=== PATIENT | male | born 1945 | race Caucasian/White ===

== ENCOUNTER 2020-03-06 05:33 | Outpatient (RCR) | payer MEDICARE ==
[~2020-03-06] VITALS: Ht 188 cm; Wt 114.2 kg
[2020-03-06 09:20] VITALS: BP 143/86
[2020-03-06 09:54] LABS: BASOPHILS % (AUTO) 0 % (0-10); EOSINOPHILS # (AUTO) 0.3 10^3/uL (0.0-0.3); EOSINOPHILS % (AUTO) 3 % (0-10); HEMATOCRIT 46 % (40-54); HEMOGLOBIN 15.5 g/dL (13.3-17.7); LYMPHOCYTES # (AUTO) 0.9 10^3/uL (1.0-4.0); LYMPHOCYTES % (AUTO) 9 % (12-44); MEAN CORPUSCULAR HEMOGLOBIN 30 pg (25-34); MEAN CORPUSCULAR HGB CONC 34 g/dL (32-36); MEAN CORPUSCULAR VOLUME 90 fL (80-99); MEAN PLATELET VOLUME 9.5 fL (9.0-12.2); MONOCYTES # (AUTO) 0.7 10^3/uL (0.0-1.0); MONOCYTES % (AUTO) 7 % (0-12); NEUTROPHILS # (AUTO) 7.6 10^3/uL (1.8-7.8); NEUTROPHILS % (AUTO) 80 % (42-75); PLATELET COUNT 240 10^3/uL (130-400); WHITE BLOOD COUNT 9.6 10^3/uL (4.3-11.0)
[2020-03-06] MEDS ORDERED: ACET-2267 PO (10:24)
[2020-03-06] MEDS ORDERED: AMLO-251 PO (10:24)
[2020-03-06] MEDS ORDERED: FINA5TAB6 PO (10:24)
[2020-03-06] MEDS ORDERED: TRAM50TA3 PO (10:24)
[2020-03-06] MEDS ORDERED: CARV6.252 PO (10:24)
== END 2020-03-06 10:37 | disposition home or self-care (01) ==
LOC: PREOP 05:33
PROVIDERS: ATTEND Urology
DX: Z01.818 Encounter for other preprocedural examination (principal); N40.0 Benign prostatic hyperplasia without lower urinary tract symptoms; N21.0 Calculus in bladder
CPT/HCPCS: 85025; 86850; 86900; 86901; 87081; U0002; 36415; 87635

== ENCOUNTER 2020-03-10 06:15 | Inpatient (IN) | payer MEDICARE ==
[2020-03-10] VITALS (14 sets, daily range): BP systolic 94–152; BP diastolic 65–92
[~2020-03-10] VITALS: Ht 188 cm; Wt 114.2 kg
[~2020-03-10 06:15] MED LIST: ACET-2267 PO; AMLO-251 PO; CARV6.252 PO; FINA5TAB6 PO; TRAM50TA3 PO
[2020-03-10] MEDS ORDERED: LACTATED RINGERS 1,000 ML IV PRN (06:52)
[2020-03-10] MEDS ORDERED: proPOfol 200 MG/20 ML (DIPRIVAN) VIAL IV ONE (06:57)
[2020-03-10] MEDS ORDERED: ONDANSETRON 4 MG/2 ML (SDV) Z0FRAN ONE (06:57)
[2020-03-10] MEDS ORDERED: ROCURONIUM 10 MG/ML 5 ML SYRINGE IV ONE ×2 (06:57→09:20)
[2020-03-10] MEDS ORDERED: LIDOCAINE PF 2% 5 ML (XYLOCAINE) VIAL ONE (06:57)
[2020-03-10] MEDS ORDERED: fentaNYL INJECTION 100 MCG/2 ML AMP ONE ×2 (06:58→08:01)
[2020-03-10] MEDS ORDERED: MIDAZOLAM 2 MG/2 ML (VERSED) VIAL ONE (06:58)
--- NOTE | 2020-03-10 06:58 | Progress Note-Pre Operative ---
Pre-Operative Progress Note H&P Reviewed The H&P was reviewed, patient examined and no changes noted. Date Seen by Provider: Mar 10, 2020 Time Seen by Provider: 06:58 Date H&P Reviewed: Mar 10, 2020 Time H&P Reviewed: 06:58 Pre-Operative Diagnosis: BPH AND URINE RETENTION THALIA VANG MD Mar 10, 2020 06:58
[2020-03-10] MEDS ORDERED: BELLADONNA ALK/OPIUM (B & O) 30 MG SUPP PR PRN (07:00)
[2020-03-10] MEDS ORDERED: cefTRIAXone FOR IV USE 1,000 MG in WATER (STERILE) FOR INJECTION 10 ML IV ONE (07:00)
--- NOTE | 2020-03-10 07:00 | Progress Note-Post Operative ---
Post-Operative Progess Note Surgeon (s)/Retail Support Associate (s) Surgeon THALIA VANG MD Retail Support Associate: CINDY INGRAM D.O Pre-Operative Diagnosis BPH, BLADDER STONE AND URINE RETENTION Post-Operative Diagnosis SAME Procedure & Operative Findings Date of Procedure 03/10/20 Procedure Performed/Findings SPP AND REMOVAL OF BLADDER STONE Anesthesia Type GENERAL Estimated Blood Loss Estimated blood loss (mL): 350cc Specimens/Packing Specimens Removed PROSTATE ADENOMA AND BLADDER STONE Packing: HEMOVAC TO SELF SUCTION THALIA VANG MD Mar 10, 2020 07:00
[2020-03-10] MEDS ORDERED: GENTAMICIN 40 MG/ML 2 ML INJ SDV ONE (07:05)
[2020-03-10] MEDS ORDERED: SEVOFLURANE (ULTANE) 15 ML INHAL SOLN ONE ×4 (07:12→09:20)
[2020-03-10] MEDS ORDERED: fentaNYL INJECTION 5,000 MCG in EMPTY IV BAG (PVC) 1 EA IV SCH ×4 (07:15)
[2020-03-10] MEDS ORDERED: FLU QUAD HIGH DOSE 240 MCG/0.7 ML 2020-21 (FLUZONE) IM ONE (07:30)
[2020-03-10] MEDS ORDERED: NEOSTIGMINE 3 MG/3 ML VIAL ONE (08:55)
[2020-03-10] MEDS ORDERED: GLYCOPYRROLATE 0.2 MG/ML (ROBINUL) 2 ML VIAL ONE (08:55)
[2020-03-10] MEDS ORDERED: morphine INJ 10 MG/ML 1ML (SYR OR VIAL) IVP ONE (09:45)
[2020-03-10] MEDS ORDERED: PROMETHAZINE INJ 25 MG/ML (PHENERGAN) AMP IVP ONE (09:45)
[2020-03-10] MEDS ORDERED: ONDANSETRON 4 MG/2 ML (SDV) Z0FRAN IVP PRN (09:45)
[2020-03-10] MEDS ORDERED: MEPERIDINE (DEMEROL) INJ 50 MG/ML IVP ONE (09:45)
[2020-03-10 10:17] LABS: HEMOGLOBIN 13.4 g/dL (13.3-17.7); MEAN PLATELET VOLUME 9.6 fL (9.0-12.2); WHITE BLOOD COUNT 14.4 10^3/uL (4.3-11.0)
[2020-03-10 10:21] LABS: CALCIUM 8.3 MG/DL (8.5-10.1); CREATININE SERUM 1.2 MG/DL (0.60-1.30); POTASSIUM 4.6 MMOL/L (3.6-5.0)
--- NOTE | 2020-03-10 11:00 | NUR ---
EMERY AMOR admitted to room 410-1, from the surgery center prostectomy and removal of bladder stone , on 03/10/20, accompanied by OR nurse .EMERY AMOR introduced to surroundings, call light, bed controls, phone, TV, temperature control, lights, meal times, smoking policy, visitor policy, side rail policy, bathrooms and showers. Patient Rights given to patient in the handbook. EMERY AMOR verbalizes understanding that [facility] is not responsible for the loss or damage to any personal effects or valuables that are kept in the patients posession during their hospitalization. The following Patient Care Plans and discharge were discussed with the patient. EMERY AMOR verbalizes understanding of Interdisciplinary Patient Education. Patient was informed about the Rapid Response Team and its purpose.
[2020-03-10] MEDS: LACTATED RINGERS 1,000 ML IV SCH ×3 (11:01→15:13)
[2020-03-10] MEDS: cefTRIAXone FOR IV USE 1,000 MG in WATER (STERILE) FOR INJECTION 10 ML IV SCH (11:02)
[2020-03-10] MEDS: DOCUSATE SODIUM 100 MG (COLACE) CAP PO SCH ×2 (11:02→21:02)
[2020-03-10] MEDS ORDERED: BELLADONNA ALK/OPIUM (B & O) 30 MG SUPP ONE (11:32)
[2020-03-10] MEDS ORDERED: diphenhydrAMINE 50 MG/ML INJ (BENADRYL) IV PRN (12:45)
[2020-03-10] MEDS ORDERED: METOCLOPRAMIDE INJ 10 MG/2 ML (REGLAN) IV PRN (12:45)
[2020-03-10] MEDS ORDERED: ONDANSETRON 4 MG/2 ML (SDV) Z0FRAN IV PRN (12:45)
[2020-03-10] MEDS ORDERED: fentaNYL INJECTION 1,000 MCG in NS (IVPB) 80 ML IV SCH (12:45)
[2020-03-10] MEDS ORDERED: NALOXONE 0.4 MG/ML 1 ML (NARCAN) VIAL IV PRN (12:45)
--- NOTE | 2020-03-10 13:17 | OPERATIVE REPORT ---
DATE OF SERVICE: 03/10/2020 PREOPERATIVE DIAGNOSES: Benign prostatic hypertrophy with urinary retention and bladder stone. POSTOPERATIVE DIAGNOSES: Benign prostatic hypertrophy with urinary retention and bladder stone. OPERATIONS PERFORMED: Suprapubic prostatectomy and removal of bladder stones. SURGEON: Agustin Vang MD. ANESTHESIA: General. COMPLICATIONS: None. DESCRIPTION OF PROCEDURE: Under satisfactory general anesthesia, the patient in supine position, the genitalia, abdomen and thigh were prepped and draped in the usual sterile fashion after removing the present catheter. A Presley catheter was inserted sterilely and accessible sterilely and the balloon was inflated to 10 mL. The bladder was filled with about 400 mL of antibiotic solution and the catheter was clamped. A midline incision was made from symphysis pubis to below the umbilicus, carried through the skin, subcutaneous tissue and fascia. The fascia was incised and the midline was identified. The recti were retracted laterally. The retropubic space was dissected bluntly. A self-retaining retractor was applied. Two stay sutures of silk were placed on either side of the midline of the bladder. The bladder was opened longitudinally and the fluid was suctioned. The ureteral orifices and trigone were identified and preserved at all time. A circular incision was made around the adenoma and deepened with the finger and enucleated the whole adenoma after retracting the catheter and removed it completely. The prostatic fossa was packed with a vaginal pack and pressure was applied for a few minutes for hemostasis. The ureteral orifices were identified spurting clear urine. A stone was in the bladder. It was removed prior to the enucleation. The vaginal pack was then removed and a 3-way 30 mL balloon catheter was inserted. The balloon inflated to 50 mL. The 20-Nauruan 2-way 5 mL balloon catheter was inserted and the suprapubic tube brought on this side anteriorly and the balloon inflated to 10 mL. Closure was performed in a 2-layer, first the mucosa with a running 3-0 chromic catgut and then the seromuscular layer with interrupted 2-0 chromic. The suprapubic tube was connected to CBI coming out through the urethral catheter, the return of which was pretty clear and CBI was run fpc. The retropubic space was drained and Hemovac was brought through a separate stab wound on the right side of the incision and secured in position with 2-0 silk suture. Closure was performed in layers, first the recti were approximated with interrupted 3-0 chromic, the fascia with interrupted 0 Vicryl, the subcutaneous tissue with interrupted 3-0 plain and the skin with marianna. The suprapubic tube was secured in position with 0 silk suture. The needle, sponge and instrument counts were correct x2. Estimated blood loss was 350 mL, none of which was replaced. The patient tolerated the procedure and anesthesia well and was sent to recovery room in stable condition after application of a dressing. Job ID: [id number] DocumentID: [id number] Dictated Date: 03/10/2020 09:31:15 Poultry Helper Date: 03/10/2020 13:16:09 Dictated By: AGUSTIN VANG MD
[2020-03-10] MEDS: NS IV 1000 ML 1,000 ML IV SCH (13:34)
[2020-03-10] MEDS: LIDOCAINE UROJET 2% GEL 10 ML PKG TOP PRN ×2 (13:36→21:12)
--- NOTE | 2020-03-10 14:11 | Anesthesia-General Post-Op ---
General Patient Condition Mental Status/LOC: Same as Preop Cardiovascular: Satisfactory Nausea/Vomiting: Absent Respiratory: Satisfactory Pain: Controlled Complications: Absent Post Op Complications Complications None Follow Up Care/Instructions Patient Instructions None needed. Anesthesia/Patient Condition Patient Condition Patient is doing well, no complaints, stable vital signs, no apparent adverse anesthesia problems. No complications reported per nursing. SUSANA SHELL CRNA Mar 10, 2020 14:11
[2020-03-11 04:35] VITALS: BP 128/73
[2020-03-11] MEDS: cefTRIAXone FOR IV USE 1,000 MG in WATER (STERILE) FOR INJECTION 10 ML IV SCH (06:17)
[2020-03-11 08:00] VITALS: BP 143/81
[2020-03-11] MEDS: SENNA W/DOCUSATE (SENOKOT S) TABLET PO SCH (08:24)
[2020-03-11] MEDS: DOCUSATE SODIUM 100 MG (COLACE) CAP PO SCH ×2 (08:24→20:06)
--- NOTE | 2020-03-11 10:12 | Progress Note - Urology ---
Progress Note-Urology Progress Notes/Assess & Plan Progress/Assessment & Plan DOING, FEELING, AND LOOKING WELL. TOLERATES DIET WELL. PASSING FLATUS, NO BM YET. CHEST CTA, NORMAL BOWEL SOUNDS, HEART RRR. GOOD [place] OUTPUT. URINE TINGED AND CLEAR, NO CLOTS. NO COMPLAINTS. HEMOVAC 30CC. Final Diagnosis BPH AND URINE RETENTION POST SPP THALIA VANG MD Mar 11, 2020 10:12
[2020-03-11] MEDS ORDERED: MILK OF MAGNESIA 400 MG/5 ML 30 ML UDC PO NR (10:15)
[2020-03-11 12:00] VITALS: BP 136/81
[2020-03-11] MEDS: LIDOCAINE UROJET 2% GEL 10 ML PKG TOP PRN (14:28)
[2020-03-11 16:09] VITALS: BP 157/77
[2020-03-11] MEDS: NS IV 1000 ML 1,000 ML IV SCH (18:14)
[2020-03-11 19:47] VITALS: BP 139/75
--- NOTE | 2020-03-11 21:30 | NUR ---
PATIENT HAD SMALL AMOUNT OF BLOOD DRAINING AROUND CATHETER. HAND IRRIGATION DONE AT THIS TIME. A SMALL CLOT WAS REMOVED. PATIENTS URINE CLEAR/TINGED. CBI IN PLACE. WILL CONTINUE TO MONITOR.
[2020-03-11 23:19] VITALS: BP 122/88
[2020-03-12 04:11] VITALS: BP 125/79
[2020-03-12 05:12] LABS: BASOPHILS % (AUTO) 0 % (0-10); EOSINOPHILS % (AUTO) 0 % (0-10); HEMATOCRIT 37 % (40-54); HEMOGLOBIN 12.6 g/dL (13.3-17.7); LYMPHOCYTES % (AUTO) 8 % (12-44); MEAN CORPUSCULAR HEMOGLOBIN 31 pg (25-34); MEAN CORPUSCULAR HGB CONC 34 g/dL (32-36); MEAN CORPUSCULAR VOLUME 90 fL (80-99); MONOCYTES # (AUTO) 1.2 10^3/uL (0.0-1.0); MONOCYTES % (AUTO) 10 % (0-12); NEUTROPHILS # (AUTO) 10.1 10^3/uL (1.8-7.8); NEUTROPHILS % (AUTO) 81 % (42-75); PLATELET COUNT 174 10^3/uL (130-400); WHITE BLOOD COUNT 12.4 10^3/uL (4.3-11.0)
[2020-03-12 05:27] LABS: POTASSIUM 4.1 MMOL/L (3.6-5.0)
[2020-03-12 05:28] LABS: CALCIUM 8.4 MG/DL (8.5-10.1)
[2020-03-12 05:32] LABS: CREATININE SERUM 1.22 MG/DL (0.60-1.30)
[2020-03-12] MEDS: cefTRIAXone FOR IV USE 1,000 MG in WATER (STERILE) FOR INJECTION 10 ML IV SCH (06:18)
--- NOTE | 2020-03-12 06:43 | NUR ---
PATIENT HAD SMALL AMOUNT OF BLOOD DRAINING AROUND CATHETER. HAND IRRIGATION DONE AT THIS TIME. A SMALL CLOT WAS REMOVED. PATIENTS URINE CLEAR/TINGED. CBI IN PLACE. WILL CONTINUE TO MONITOR. PATIENT HAS NO COMPLAINTS AT THIS TIME.
[2020-03-12 08:00] VITALS: BP 150/91
--- NOTE | 2020-03-12 08:09 | NUR ---
PATIENT CBI FLOWING WITH NO OBSTRUCTION. PATIENT IS IN BED, DENIES ANY C/O OR SYMPTOMS. DR VANG NOTIFIED OF MARGO'S NEWLY NOTED AFIB BY THIS RN. NEW ORDERS. PATIENT IS ASYMPTOMATIC
--- NOTE | 2020-03-12 08:44 | NUR ---
DR MORENO NOTIFIED OF CONSULTATION AND EKG RESULTS-AFIB AND POSTERIOR INFARCT. LEFT VOICE MESSAGE AND TEXT MESSAGE.
--- NOTE | 2020-03-12 08:59 | NUR ---
DR MORENO AND DR ENGLAND NOTIFIED OF ASSESSMENT, FINDINGS EKG. NEW ORDERS. PATIENT REMAINS ASYMPTOMATIC.
--- NOTE | 2020-03-12 09:01 | NUR ---
PER DR VANG, HE WILL SPEAK DIRECTLY WITH DR MORENO REGARDING DIONNE'S ORAL ANTICOAGULATION. PATIENT DENIES NEEDS OR C/O. PATIENT EDUCATED ON ALL ORDERS, CALM, REASSURING APPROACH PROVIDED. SPOKE WITH PATIENT AND PATENT'S SISTER, SADIQ EFRAIN AGUILAR. NO QUESTIONS AT THIS TIME.
[2020-03-12] MEDS ORDERED: MILK OF MAGNESIA 400 MG/5 ML 30 ML UDC ONE ×2 (09:12→14:30)
[2020-03-12] MEDS: SENNA W/DOCUSATE (SENOKOT S) TABLET PO SCH (09:15)
[2020-03-12] MEDS: DOCUSATE SODIUM 100 MG (COLACE) CAP PO SCH ×2 (09:15→19:48)
[2020-03-12] MEDS: LACTATED RINGERS 1,000 ML IV SCH (09:31)
--- NOTE | 2020-03-12 09:59 | Progress Note - Urology ---
Progress Note-Urology Progress Notes/Assess & Plan Progress/Assessment & Plan ON AND OFF A.FIB, ASYMPTOMATIC, CONSULT DR MORENO, PLAN OBSERVE FOR NOW. URINE CLEAR AND DIPIKA. PLAN HOLD CBI, PUSH FLUIDS, SALINE LOCK FOR IV ABX Final Diagnosis BPH THALIA VANG MD Mar 12, 2020 09:59
--- NOTE | 2020-03-12 10:25 | NUR ---
ICU NOTIFIED THIS RN OF PVC'S AND VARIABLE HR INTO 150'S. DR MORENO NOTIFIED. DR VANG AND DR MORENO HERE EARLIER TO ASSESS PATIENT. PATINET ASYMPTOMATIC WITH HR. CONT TO MONITOR.
[2020-03-12 12:00] VITALS: BP 148/82
[2020-03-12] MEDS ORDERED: meTOprolol TARTRATE 25 MG (LOPRESSOR) TABLET ONE (12:01)
[2020-03-12 12:07] VITALS: BP 149/78
[2020-03-12] MEDS: LIDOCAINE UROJET 2% GEL 10 ML PKG TOP PRN (13:27)
[2020-03-12] MEDS ORDERED: MILK OF MAGNESIA 400 MG/5 ML 30 ML UDC PO PRN (14:30)
--- NOTE | 2020-03-12 14:36 | NUR ---
PATIENT C/O CONSTIPATION. MOM NOT EFFECTIVE. DR VANG NOTIFIED WITH NEW ORDERS.
--- NOTE | 2020-03-12 15:11 | Consultation - Hospitalist ---
HPI History of Present Illness: HPI/Chief Complaint Pt is a 74yoCM with a PMH of BPH who was admitted for SPP. This morning he developed a-fib and was asymptomatic and this has since resolved. I was consulted for medical management. The patient states he is normally quite healthy and really only his prostate issues and high blood pressure. He has no history of a-fib but he states he has nieces who has an arrhythmia. His only complaint for me is constipation. I offered more treatment but he would like to see if his milk of mag will work first. Source: patient Exam Limitations: no limitations Date Seen 03/12/20 Attending Physician Agustin Hensley MD PCP No,Local Physician Referring Physician Date of Admission Mar 10, 2020 at 06:15 Home Medications & Allergies Home Medications Reviewed patient Home Medication Reconciliation performed by pharmacy medication reconciliations biomedical technician and/or nursing. Patients Allergies have been reviewed. Allergies Allergies Coded Allergies No Known Drug Allergies (Ylooeducwi25/30/20) Past Lxydfnv-Uzbinp-Bvmblf Hx Past Med/Social Hx: Reviewed Nursing Past Med/Soc Hx Patient Social History Alcohol Use: Denies Use Recreational Drug Use: No Physical Abuse Screen: No Sexual Abuse: No Recent Foreign Travel: No Contact w/other who traveled: No Recent Hopitalizations: Yes (related to bladder retention) Recent Infectious Disease Expo: No Immunizations Up To Date Date of Influenza Vaccine: Feb 05, 2019 Seasonal Allergies Seasonal Allergies: Yes Past Medical History Currently Using CPAP: No Currently Using BIPAP: No Cardiac: Hypertension Genitourinary: Benign Prostatic Hyperpl Gastrointestinal: Hemorrhoids Musculoskeletal: Arthritis History of Blood Disorders: No Family History Reviewed Nursing Family Hx Review of Systems Constitutional: No chills, No fever EENTM: no symptoms reported Respiratory: No cough, No dyspnea on exertion, No short of breath Cardiovascular: No chest pain, No edema, No Hx of Intervention, No palpitations Gastrointestinal: no symptoms reported Genitourinary: see HPI Musculoskeletal: no symptoms reported Skin: no symptoms reported Psychiatric/Neurological: No Symptoms Reported Physical Exam Physical Exam Vital Signs Vital Signs - First Documented 03/10/20 07:10 Temp 35.8 Pulse 70 Resp 18 B/P (MAP) 152/87 (108) Pulse Ox 98 O2 Delivery Room Air Capillary Refill : Less Than 3 Seconds Height, Weight, BMI Height: '" Weight: lbs. oz. kg; 32.31 BMI Method: General Appearance: No Apparent Distress, WD/WN HEENT: PERRL/EOMI, Moist Mucous Membranes; No Scleral Icterus (L), No Scleral Icterus (R) Neck: Normal Inspection, Supple; No Thyromegaly Respiratory: Lungs Clear, No Accessory Muscle Use, No Respiratory Distress Cardiovascular: No Murmur, Irregularly Irregular Gastrointestinal: Normal Bowel Sounds, Non Tender, Soft Genital/Rectal: Other (catheter in place) Extremity: No Calf Tenderness, No Pedal Edema Neurologic/Psychiatric: Alert, Oriented x3, Normal Mood/Affect Skin: Normal Color, Warm/Dry Results Results/Procedures Labs Laboratory Tests 03/12/20 04:35 Patient resulted labs reviewed. Assessment/Plan Assessment and Plan Assess & Plan/Chief Complaint Prostate adenoma and BPH s/p SPP Catheter in place Hematuria clearing Pain controlled Bowel regimen Urology primary A-fib New onset Currently in sinus rhythm Cardiology consulted, appreciate recs Echo pending Anticoagulation contraindicated at this time due to surgery HTN Relatiely well controlled Metoprolol Diagnosis/Problems Diagnosis/Problems (1) Atrial fibrillation Qualifiers: Atrial fibrillation type: paroxysmal Qualified Codes: I48.0 - Paroxysmal atrial fibrillation (2) BPH (benign prostatic hyperplasia) Qualifiers: Lower urinary tract symptom presence: symptoms present Lower urinary tract symptom detail: unspecified Qualified Codes: N40.1 - Benign prostatic hyperplasia with lower urinary tract symptoms (3) Urine retention Status: Chronic (4) Bladder stone Status: Chronic (5) Essential (primary) hypertension ANUSHKA ENGLAND MD Mar 12, 2020 15:11
[2020-03-12] MEDS ORDERED: SENNA W/DOCUSATE (SENOKOT S) TABLET PO PRN (15:15)
[2020-03-12 16:33] VITALS: BP 124/69
--- NOTE | 2020-03-12 18:27 | Consultation-Cardiology ---
HPI-Cardiology Cardiology Consultation: Date of Consultation 03/12/20 Date of Admission Attending Physician Agustin Hensley MD Admitting Physician No,Local Physician Consulting Physician Carmel CNUHA MD HPI: Time Seen by a Provider: 10:00 NYV-Wnqxud-Hajlzk Hx Patient Social History Alcohol Use: Denies Use Recreational Drug Use: No Recent Foreign Travel: No Recent Infectious Disease Expo: No Physical Abuse Screen: No Sexual Abuse: No Immunizations Up To Date Date of Influenza Vaccine: Feb 05, 2019 Past Medical History PMH As described under Assessment. Allergies and Home Medications Allergies Coded Allergies: No Known Drug Allergies (Unverified , 03/06/20) Home Medications Acetaminophen 500 Mg Tablet, 1,000 MG PO BID, (Reported) take 2 (500mg) tabs Amlodipine Besylate 10 Mg Tablet, 10 MG PO DAILY, (Reported) Carvedilol 6.25 Mg Tablet, 6.25 MG PO BID, (Reported) Finasteride 5 Mg Tablet, 5 MG PO HS, (Reported) Tramadol HCl 50 Mg Tablet, 50 MG PO BID, (Reported) Physical Exam-Cardiology Physical Exam Vital Signs/I&O 03/12/20 03/12/20 03/12/20 03/12/20 08:00 08:00 09:10 12:00 Temp 35.9 36.2 Pulse 109 103 91 Resp 20 20 B/P (MAP) 150/91 (110) 148/82 (104) Pulse Ox 97 94 O2 Delivery Room Air Room Air Room Air 03/12/20 03/12/20 03/12/20 12:07 12:35 16:33 Temp 36.6 Pulse 110 133 79 Resp 18 B/P (MAP) 149/78 (101) 124/69 (87) Pulse Ox 95 03/12/20 00:00 Intake Total 2095 ml Output Total 2890 ml Balance -795 ml Capillary Refill : Less Than 3 Seconds Data Review Labs Laboratory Tests 03/12/20 04:35: White Blood Count 12.4H, Red Blood Count 4.13L, Hemoglobin 12.6L, Hematocrit 37L , Mean Corpuscular Volume 90, Mean Corpuscular Hemoglobin 31, Mean Corpuscular Hemoglobin Concent 34, Red Cell Distribution Width 13.2, Platelet Count 174, Mean Platelet Volume 10.0, Immature Granulocyte % (Auto) 1, Neutrophils (%) (Auto) 81H, Lymphocytes (%) (Auto) 8L, Monocytes (%) (Auto) 10, Eosinophils (%) (Auto) 0, Basophils (%) (Auto) 0, Neutrophils # (Auto) 10.1H, Lymphocytes # (Auto) 1.0, Monocytes # (Auto) 1.2H, Eosinophils # (Auto) 0.0, Basophils # (Auto) 0.0, Immature Granulocyte # (Auto) 0.1, Sodium Level 140, Potassium Level 4.1, Chloride Level 107, Carbon Dioxide Level 23, Anion Gap 10, Blood Urea Nitrogen 18, Creatinine 1.22, Estimat Glomerular Filtration Rate 58, BUN/Creatinine Ratio 15, Glucose Level 136H, Calcium Level 8.4L 03/12/20 09:25: Troponin I < 0.028 03/12/20 11:55: Troponin I < 0.028 Microbiology 03/10/20 MRSA Screen - Final, Complete MRSA not isolated A/P-Cardiology Plan Thank you for your consultation. Please call me if you have any questions. Bam Cunha MD, FACP, FACC, FSCAI, FHRS, CCDS Interventional Cardiology Cardiac Electrophysiology Vascular Medicine and Endovascular Interventions Carmel CUNHA MD Mar 12, 2020 18:27
[2020-03-12] MEDS: meTOprolol TARTRATE 25 MG (LOPRESSOR) TABLET PO SCH (19:48)
[2020-03-12 20:57] VITALS: BP 153/78
[2020-03-13] VITALS (7 sets, daily range): BP systolic 109–134; BP diastolic 68–84
[2020-03-13] MEDS: NS IV 1000 ML 1,000 ML IV SCH (03:27)
[2020-03-13] MEDS: cefTRIAXone FOR IV USE 1,000 MG in WATER (STERILE) FOR INJECTION 10 ML IV SCH (06:15)
[2020-03-13] MEDS: meTOprolol TARTRATE 25 MG (LOPRESSOR) TABLET PO SCH ×2 (08:57→21:03)
[2020-03-13] MEDS: DOCUSATE SODIUM 100 MG (COLACE) CAP PO SCH ×2 (08:57→21:04)
[2020-03-13] MEDS: SENNA W/DOCUSATE (SENOKOT S) TABLET PO SCH (08:58)
--- NOTE | 2020-03-13 09:45 | NUR ---
Verbal orders from Dr Hensley to add Pyridium 200 TID and remove suprapubic barreto
--- NOTE | 2020-03-13 09:47 | Progress Note - Urology ---
Progress Note-Urology Progress Notes/Assess & Plan Progress/Assessment & Plan CONTINUES WELL. URINE CLEAR AND DIPIKA. PLAN DC SP TUBE.HAD TWO GOOD BM. Final Diagnosis BPH AND URINE RETENTION THALIA VANG MD Mar 13, 2020 09:47
--- NOTE | 2020-03-13 10:08 | NUR ---
pyridum 200 TID DCD due to new order from Ayden
[2020-03-13] MEDS ORDERED: PHENAZOPYRIDINE 100 MG (PYRIDIUM) TABLET PO SCH (13:00)
[2020-03-13] MEDS: PHENAZOPYRIDINE 100 MG (PYRIDIUM) TABLET PO SCH ×2 (13:44→18:29)
[2020-03-13] MEDS: LIDOCAINE UROJET 2% GEL 10 ML PKG TOP PRN (17:28)
[2020-03-14 03:17] VITALS: BP 129/87
[2020-03-14] MEDS: cefTRIAXone FOR IV USE 1,000 MG in WATER (STERILE) FOR INJECTION 10 ML IV SCH (05:59)
[2020-03-14 08:00] VITALS: BP 188/77
[2020-03-14] MEDS: DOCUSATE SODIUM 100 MG (COLACE) CAP PO SCH (08:40)
[2020-03-14] MEDS: meTOprolol TARTRATE 25 MG (LOPRESSOR) TABLET PO SCH (08:40)
[2020-03-14] MEDS: SENNA W/DOCUSATE (SENOKOT S) TABLET PO SCH (08:40)
[2020-03-14] MEDS: PHENAZOPYRIDINE 100 MG (PYRIDIUM) TABLET PO SCH (08:40)
--- NOTE | 2020-03-14 09:44 | Discharge Inst-Urology ---
Discharge Inst-Urology Reconcile Patient Problems Problems Reviewed?: Yes Final Diagnosis BPH AND URINE RETENTION Patient Instructions/Follow Up Plan/Assessment/Instructions Discharge with barreto and leg bag day time and large bag night time with instructions Patient to come to office Monday at 1pm to DC Barreto and marianna and see me Showers, no bath Keep bowels soft and moving REST at home Diet as tolerated. If questions or concerns contact your physician or seek help at emergency department. THALIA VANG MD Mar 14, 2020 09:44
[2020-03-14 13:00] VITALS: BP 188/77
--- NOTE | 2020-03-14 13:07 | NUR ---
Fentanyl 70CC wasted at this time with Tayla RN as witness
--- NOTE | 2020-03-14 17:14 | Cardiology Progress Note ---
Cardiology SOAP Progress Note Objective: I&O/Vital Signs 03/14/20 03/14/20 03/14/20 03/14/20 07:00 07:00 08:00 09:00 Temp 35.4 Pulse 88 89 Resp 20 20 B/P (MAP) 188/77 (114) Pulse Ox 95 O2 Delivery Room Air Room Air 03/14/20 13:00 Temp 35.4 Pulse 89 Resp 20 B/P (MAP) 188/77 Pulse Ox 95 O2 Delivery Room Air 03/14/20 00:00 Intake Total 1620 ml Output Total 1245 ml Balance 375 ml Results/Procedures: Labs Microbiology 03/10/20 MRSA Screen - Final, Complete MRSA not isolated A/P: Thank you for your consultation. Please call me if you have any questions. Bam Cunha MD, FACP, FACC, FSCAI, FHRS, CCDS Interventional Cardiology Cardiac Electrophysiology Vascular Medicine and Endovascular Interventions Carmel CUNHA MD Mar 14, 2020 17:14
--- NOTE | 2020-03-15 04:13 | DISCHARGE SUMMARY ---
DATE OF SERVICE: CONDITION ON DISCHARGE: Satisfactory. ADMITTING DIAGNOSIS: Benign prostatic hypertrophy with urinary retention. DISCHARGE DIAGNOSIS: Benign prostatic hypertrophy with urinary retention. OPERATION PERFORMED: Suprapubic prostatectomy and removal of bladder stone on 03/10/2020. SUMMARY: The patient is a 74-year-old white man, who underwent a suprapubic prostatectomy for urinary retention and BPH on 03/10/2020. History and physical on admission as dictated. Postoperatively, the patient did well; however, on 03/12/2020, he had some on and off atrial fibrillation and consultation with pipe and tank fabricator, Dr. Cunha was obtained and he ruled out IA, confirmed on and off atrial fibrillation. We had a long discussion with the patient and Dr. Cunha regarding initiating antiplatelet namely, Eliquis. At this stage, we found that this is more reasonable and safer to hold off on that to prevent any bleeding from the fresh prostatic fossa for the removal of the large adenoma. The risks were fully explained to the patient. The patient tolerated his p.o. very well. He gradually had bowel movements with no problem. His urine cleared pretty quickly and then the suprapubic tube was removed on 03/13/2020. On 03/14/2020, the patient was doing very well, moving his bowels, urine crystal clear, having no cardiac symptoms at all, tolerating diet well today no drainage from the Hemovac, the day before 30 mL. He expressed the wish to go home, which was fine with me, so he was dismissed home after we removed the Hemovac with a Presley catheter with instructions. He is familiar with it. He had a catheter before the surgery for about a month during the trial of voidings that he failed. He is to refrain from any strenuous activity, heavy lifting; showers, no baths; keep his bowel soft and moving. He is to come to my office on Monday. We will remove the Presley catheter as well as the marianna. He is to contact me or the emergency room with any problem. His pathology report came back benign, no malignancy and we will follow up as well with Dr. Cunha on an outpatient basis regarding his atrial fibrillation. Job ID: [id number] DocumentID: [id number] Dictated Date: 03/14/2020 09:49:43 Joy Operator Date: 03/15/2020 04:12:34 Dictated By: THALIA VANG MD
== END 2020-03-14 13:00 | disposition home or self-care (01) | DRG 718 ==
LOC: 4TH 06:15 → SURG 06:16 → 4TH 10:50
PROVIDERS: ADMIT Urology; ATTEND Urology
PROC: 0TCB0ZZ Extirpation of Matter from Bladder, Open Approach (ICD-10-PCS; 2020-03-10)
PROC: 0VB00ZX Excision of Prostate, Open Approach, Diagnostic (ICD-10-PCS; principal; 2020-03-10 07:50)
DX: N40.1 Benign prostatic hyperplasia with lower urinary tract symptoms (principal); R33.8 Other retention of urine; N21.0 Calculus in bladder; N52.9 Male erectile dysfunction, unspecified; I10 Essential (primary) hypertension; I48.0 Paroxysmal atrial fibrillation; M19.91 Primary osteoarthritis, unspecified site; Z86.010 Personal history of colon polyps; Z23 Encounter for immunization
CPT/HCPCS: 36415; 80048; 84484; 85025; 85027; 86850; 86900; 86901; 86920; 87081; 88300; 88307; 90662; 93005; 93306; 94664